=== PATIENT | male | born 1975 | race Caucasian/White ===

== ENCOUNTER 2016-07-04 23:07 | Inpatient (IN) | payer OTHER ==
--- NOTE | ~2016-07-04 | DS ---
Unit #: [id number] #: [id number] Patient: JOJO LIN [id number] [facility] [place] [address] [id number] MR#: [id number] NAME: JOJO LIN. ROOM: P183 Age: 41 Sex: M Admission Date: 07/04/2016 : 1975 Discharge Date: 07/09/2016 Attending Physician: Tk Cox M.D. Primary Care Physician: Doretha Smith DISCHARGE SUMMARY IDENTIFYING DATA Mr. Lin is a 41-year-old white male, who is a resident of [place], [place] and was self-referred to the hospital. DISCHARGE DIAGNOSES Psychiatric: Major depressive disorder, recurrent, moderate, without psychotic features; opioid dependence, moderate. Medical: Hypertension and asthma. Stressors: Moderate psychosocial stressors. HISTORY OF PRESENT ILLNESS Please see initial psychiatric evaluation for details. PAST PSYCHIATRIC HISTORY Please see initial psychiatric evaluation for details. PAST MEDICAL HISTORY Please see initial psychiatric evaluation for details. HOSPITAL COURSE The patient was admitted to the adult psychiatric and chemical dependency unit at [facility]gio [facility] and was oriented to the hospital environment. Routine p.r.n. medications were initiated, and he was started on the detox protocol and was also started on Remeron as an antidepressant and was closely monitored. He was taking the medications regularly and was tolerating them fairly well and was able to show a decent and therapeutic response and was willing to continue treatment on an outpatient basis and as such, it was decided that he will be discharged home and will continue treatment on an outpatient basis. DISCHARGE MEDICATIONS Remeron 15 mg at bedtime for depression. DISCHARGE CONDITION Stable. PROGNOSIS Fair. Dictated by... Tk Cox M.D. IAA/modl Unit #: [id number] #: [id number] Patient: JOJO LIN TD: 07/09/2016 23:54 JOB #: [id number] DISCHARGE SUMMARY X Tk Cox MD DISCHARGE SUMMARY
--- NOTE | ~2016-07-04 | PN ---
Unit #: [id number] #: [id number] Patient: JOJO LIN [id number] [facility] [address] [place] [address] [id number] MR#: [id number] NAME: JOJO LIN ROOM: P183 Age: 41 Sex: M Admission Date: 07/04/2016 : 1975 Attending Physician: Tk Cox M.D. Admitting Physician: Tk Cox M.D. Primary Care Physician: Doretha MENDES PROGRESS NOTES DATE OF SERVICE: 07/06/2016 SUBJECTIVE Mr. Lin is a 41-year-old white male who was seen today and chart was reviewed and case was discussed with the staff. He has been complaining of significant anxiety. Meanwhile, he has been compliant with the treatment recommendations and has been taking medications and tolerating them fairly well with no reported side effects. MENTAL STATUS EXAMINATION Middle-aged white male who was casually dressed with fair personal hygiene, appears to be in no acute distress or discomfort. He was awake and alert with intact orientation. His mood was anxious with a congruent affect. He denies any suicidal or homicidal ideations. His insight and judgment remain slightly impaired. TREATMENT PLAN 1. We will continue him on his current medications and treatment protocol. We will monitor his response to the medications and make further adjustments as needed. 2. We will continue to follow up. Dictated by... Jacque Gudino/mikayla TD: 07/08/2016 02:09 JOB #: [id number] [facility] PROGRESS NOTES X Tk Cox MD PROGRESS NOTE
--- NOTE | ~2016-07-04 | PA ---
Unit #: [id number] #: [id number] Patient: [facility]JO LIN [id number] [facility] [place] [address] [id number] I MR#: [id number] NAME: JOJO LIN. ROOM: P183 Age: 41 Sex: M Admission Date: 07/04/2016 : 1975 Date of Assessment: 07/05/2016 Attending Physician: Tk Cox M.D. Admitting Physician: Tk Cox M.D. Primary Care Physician: Doretha Smith PSYCHIATRIC ASSESSMENT DATE OF SERVICE 07/05/2016. IDENTIFYING DATA Mr. Lni is a 41-year-old single white male, who is a resident of [place], [place] and is known to us from previous encounter and was self-referred to the hospital on a voluntary basis. CHIEF COMPLAINT "I have been using heroin on a daily basis." HISTORY OF PRESENT ILLNESS Mr. Lin is a 41-year-old white male with history of mood disorder and substance abuse, who was self-referred to the hospital. Upon presentation, he reports that he has been using 0.5 to 1 g of heroin on a daily basis and that he feels suicidal and had a plan to overdose on heroin and does report increasing depression, anxiety, irritability, restlessness, feelings of hopelessness and helplessness, psychomotor retardation, anhedonia, and suicidal ideations with intent and plan. SUBSTANCE ABUSE HISTORY The patient reports a history of alcohol and opioid abuse, and currently, opioids has been his drug of choice as he reports that he has been snorting 0.5 to 1 g on a daily basis. PAST PSYCHIATRIC HISTORY The patient has had a history of inpatient chemical dependency treatment at [facility], and [facility], and review of the medical records indicate that currently he is not active in any treatment program, is not seeing a psychiatrist, and is not taking any psychotropic medications. PAST MEDICAL HISTORY The patient's medical history is significant for asthma and hypertension. ALLERGIES Morphine. PERSONAL AND SOCIAL HISTORY A 41-year-old white male, who reports that he is single, unemployed, and lives by himself and has poor social support system. MENTAL STATUS EXAMINATION Unit #: [id number] #: [id number] Patient: JOJO LIN A Middle-aged white male, who was casually dressed with fair personal hygiene, appears to be in no acute distress or discomfort. He was awake and alert on interaction with intact orientation to time, place, and person. His mood was anxious and depressed with a congruent affect. His speech was slow and goal directed. He denies any suicidal or homicidal ideations and also denies any auditory or visual hallucinations. His insight and judgment remain significantly impaired. DIAGNOSTIC IMPRESSION Psychiatric: Major depressive disorder, recurrent, moderate, without psychotic features and opioid dependence, moderate, in acute withdrawals. Medical: Hypertension and asthma. Stressors: Moderate psychosocial stressors. TREATMENT PLAN 1. The patient has presented with a history of mood disorder and substance abuse and has been decompensating and will need inpatient hospitalization for safety and stabilization. We will start him back on his home medications and we will adjust the medications and monitor response. 2. Supportive therapy was provided to the patient. 3. Safe, structured, and nourishing environment will be provided. ESTIMATED LENGTH OF STAY 5 to 7 days. ABILITY TO HELP SELF Limited. WILLINGNESS TO HELP SELF The patient appears to be willing to help self. STRENGTHS 1. Communicative. 2. Cooperative. PROBLEMS 1. Chronic dysphoric symptoms. 2. Chronic chemical dependency. 3. Poor social support system. DISCHARGE CRITERIA This will be contingent upon the patient's ability to go through detox without having any significant withdrawal symptoms as well as his ability to stay safe to himself, particularly after discharge from the hospital. Dictated by... Jacque Gudino/mikayla TD: 07/05/2016 16:29 JOB #: [id number] Unit #: [id number] #: [id number] Patient: JOJO LIN PSYCHIATRIC ASSESSMENT X Tk Cox MD PSYCHIATRIC ASSESSMENT
--- NOTE | ~2016-07-04 | HP ---
Unit #: [id number] #: [id number] Patient: JOJO COLEMAN [id number] [place] [address] [id number] MR#: [id number] NAME: JOJO COLEMAN. ROOM: 83 Age: 41 Sex: M Admission Date: 07/04/2016 : 1975 Attending Physician: Tk Cox M.D. Admitting Physician: Tk Cox M.D. Primary Care Physician: Doretha Smith HISTORY AND PHYSICAL HISTORY OF PRESENT ILLNESS The patient is a 41-year-old male admitted to [address] [place] [address] on 07/04/2016 for suicidal ideations and to detox from heroin. PAST MEDICAL HISTORY 1. Hypertension 2. Asthma 3. Nicotine dependence 4. Heroin addiction PAST SURGICAL HISTORY 1. Appendectomy 2. Adenoids SOCIAL HISTORY The patient is unemployed. He lives with a friend. He smokes one to two packs of cigarettes daily and uses one-half to one gram of heroin per day. FAMILY MEDICAL HISTORY Noncontributory. ALLERGIES Morphine. CURRENT MEDICATIONS The patient is not on any home medications. REVIEW OF SYSTEMS CONSTITUTIONAL: No fever or chills. HEENT: Denies any sore throat, ear pain or runny nose. CARDIOVASCULAR: Denies chest pain, irregular heart rhythm or palpitations. CHEST: Denies shortness of breath or cough. No hemoptysis. GASTROINTESTINAL: Denies nausea, vomiting, diarrhea or chronic constipation. ENDOCRINE: Denies history of increased thirst or urination. No recent significant weight loss or gain. GENITOURINARY: Denies dysuria, frequency, or hematuria. SKIN: Denies any rashes. HEMATOLOGIC: Denies history of increased bleeding or bruising. MUSCULOSKELETAL: Denies any hot, swollen joints. No generalized muscle pain. NEUROLOGIC: Denies problems with vision or speech. No frequent, severe Unit #: [id number] #: [id number] Patient: JOJO COLEMAN headaches. No numbness, tingling or weakness in any extremities. Denies loss of bladder or bowel control. PHYSICAL EXAM GENERAL: He is awake, alert and oriented in no acute distress. VITAL SIGNS: Temperature 98.6, heart rate 101, respiration 18, blood pressure 145/98. HEIGHT: 6'1". WEIGHT: 194 pounds. SKIN: Warm and dry without rash or lesion. HEENT: Normocephalic. TMs not viewed. Oral and nasal passages clear. Conjunctivae clear. PERRLA. EOMs intact. NECK: Supple without lymphadenopathy or thyromegaly. HEART: Regular rate and rhythm without murmur. LUNGS: Clear. ABDOMEN: Soft, nontender. : Not done. EXTREMITIES: No evidence of cyanosis, clubbing or edema. Moves all without focal deficit. NEUROLOGICAL: Grossly within normal limits. Cranial Nerves: II: Visual benitez are intact. III, IV AND : Extraocular movements are intact. Pupils are equal, round and reactive to light. V: Facial sensation is grossly normal. VII: Facial movements and expression are normal. VIII: Auditory acuity grossly intact. IX, X: Uvula is midline. Phonation is normal. XI: Patient shrugs shoulders and turns head normally. XII: Tongue protrudes in the midline. Sensory and Motor Function: Sensory and motor sensation is grossly normal. Motor: moves all extremities well. IMPRESSION 1. Psychiatric admission. 2. Heroin addiction. 3. Nicotine dependence. 4. Hypertension. 5. Asthma. RECOMMENDATIONS Psychiatric per psychiatrist. MEDICAL: No contraindication to participate in facility activities. MEDICAL PROGNOSIS Good. MEDICAL CONDITION Stable. Dictated by... Beverley Oakley/wilmer TD: 07/06/2016 22:44 Unit #: [id number] #: [id number] Patient: JOJO COLEMAN JOB #: [id number] HISTORY AND PHYSICAL X JESSENIA HULL APRN X HISTORY AND PHYSICAL
--- NOTE | ~2016-07-04 | PN ---
Unit #: [id number] #: [id number] Patient: JOJO LIN [id number] [facility] [address] [place] [address] [id number] I MR#: [id number] NAME: JOJO LIN. ROOM: P183 Age: 41 Sex: M Admission Date: 07/04/2016 : 1975 Attending Physician: Tk Cox M.D. Admitting Physician: Tk Cox M.D. Primary Care Physician: Doretha MENDES PROGRESS NOTES DATE OF SERVICE: 07/08/2016 SUBJECTIVE Mr. Lin is a 41-year-old white male who was seen today and chart was reviewed, and case was discussed with the staff. He has been anxious, withdrawn, and rather seclusive to himself. Meanwhile, he has been cooperative with treatment recommendation. He has been taking the medications and tolerating them fairly well with no reported side effects. MENTAL STATUS EXAMINATION Middle-aged white male who was casually dressed with fair personal hygiene, appears to be in no acute distress or discomfort. He was awake and alert on interaction with intact orientation. His mood was anxious with a congruent affect. He denies any suicidal or homicidal ideations. His insight and judgment remain slightly impaired. TREATMENT PLAN 1. We will continue him on his current medications and treatment protocol. We will monitor his response to the medications and make further adjustments as needed. 2. We will continue to follow up. Dictated by... Jacque Gudino/mikayla TD: 07/09/2016 06:02 JOB #: [id number] [facility] PROGRESS NOTES X Tk Cox MD PROGRESS NOTE
--- NOTE | ~2016-07-04 | PN ---
Unit #: [id number] #: [id number] Patient: JOJO LIN [id number] [facility] [address] [place] [address] [id number] I MR#: [id number] NAME: JOJO LIN. ROOM: P183 Age: 41 Sex: M Admission Date: 07/04/2016 : 1975 Attending Physician: Tk Cox M.D. Admitting Physician: Tk Cox M.D. Primary Care Physician: Doretha MENDES PROGRESS NOTES DATE OF SERVICE: 07/07/2016 SUBJECTIVE Mr. Lin is a 41-year-old white male who was seen today and chart was reviewed, and case was discussed with the staff. He has been anxious, withdrawn, and rather seclusive to himself. Meanwhile, he has been cooperative with treatment recommendation. He has been taking medications and tolerating them fairly well with no reported side effects. MENTAL STATUS EXAMINATION Middle-aged white male who was casually dressed with fair personal hygiene, appears to be in no acute distress or discomfort. He was awake and alert on interaction with intact orientation. His mood was anxious with a congruent affect. His speech was slow and goal directed. He denies any suicidal or homicidal ideations. His insight and judgment remain slightly impaired. TREATMENT PLAN 1. We will continue him on his current medications and treatment protocol. We will monitor his response and make further adjustments as needed. 2. We will continue to follow up. Dictated by... Jacque Gudino/mikayla TD: 07/08/2016 00:49 JOB #: [id number] [facility] PROGRESS NOTES X Tk Cox MD PROGRESS NOTE
[~2016-07-04 23:07] MED LIST: ACETAMINOPHEN325 MG PO; ALEVE; AMOXICILLIN; AZITHROMYCIN500 MG PO; BACTRIM DS TABL1 TA1 PO; BENTYL20 MG PO; COLACE PO; DICYCLOMINE HCL20 MG PO; DSS100 MG PO; DURAGESIC TOP; FLEXERIL PO; FLEXERIL10 MG PO; FOLIC ACID1 MG PO; HUMALOG100 U/ML SUBQ; IBUPROFEN PO; KETOPROFEN PO; LISINOPRIL PO; LORTAB 5/500 TA1 TA1 PO; LORTAB 7.5-5001 TAB PO; MEDROL PO; NABUMETONE PO; NAPROXEN PO; NEXIUM PO; NEXIUM20 MG PO; NO MEDICATIONS; NORCO 5/325 TAB1 TAB PO; PEN-VEE K PO; PHENERGAN PO; PHENERGAN25 MG PO; PREDNISONE10 MG PO; PREDNISONE10 MG/DOSE PO; SKELAXIN PO; THERAPEUTIC VI1 EACH PO; TYLENOL #3 PO; TYLENOL EXTRA STR PO; ULTRAM PO; VICODIN 5/1 TAB 5/50 PO; VICODIN 5/500 T1 TAB; VICODIN 5/500 T1 TAB PO; VICODIN PO; VOLTAREN50 MG PO; VOLTAREN75 MG PO
[2016-07-05 12:45] LABS: BASOPHIL# 0.1 X10e3 (0-0.3); BASOPHIL% 0.9 % (0-2.5); EOSINOPHIL# 0.3 X10e3 (0-0.7); EOSINOPHIL% 3.3 % (0.0-7.0); LYMPHOCYTE# 4.2 X10e3 (1.0-3.5); LYMPHOCYTE% 47.1 % (17.0-45.0); MEAN CORPUSCULAR HEMOGLOBIN 29.5 PG (28-34); MEAN CORPUSCULAR HGB CONC 32.4 g/dL (30-36); MEAN PLATELET VOLUME 8.4 FL (6.5-11.5); MONOCYTE% 10.8 % (3.0-12.0); NEUTROPHIL# 3.4 X10e3 (1.5-7.1); NEUTROPHIL% 37.9 % (40-75); PLATELET COUNT 174 X10e3 (140-420); RED BLOOD COUNT 4.73 X10e (3.90-5.60); WHITE BLOOD COUNT 8.9 X10e3 (4.0-10.5)
[2016-07-05 12:56] LABS: DIFF IND NO
[2016-07-05 13:07] LABS: ALKALINE PHOSPHATASE 51 U/L (32-92); ALT (SGPT) 9 U/L (10-40); AST (SGOT) 13 U/L (10-42); BILIRUBIN,TOTAL 0.3 mg/dL (0.2-2.0); BLOOD UREA NITROGEN 17 mg/dL (9-23); BUN/CREATININE RATIO 21.25; CALCIUM SERUM 8.5 mg/dL (8.4-10.2); CARBON DIOXIDE 29 mmol/L (22-31); CHLORIDE 107 mmol/L (100-111); CREATININE SERUM 0.8 mg/dL (0.6-1.4); GLOM FILT RATE Estimated ABOVE60 mL/min (>60); GLUCOSE FASTING 113 mg/dL (70-110); POTASSIUM 3.6 mmol/L (3.5-5.1); PROTEIN TOTAL SERUM 4.9 g/dL (6.0-8.3); SODIUM 142 mmol/L (135-145)
[2016-07-05 13:16] LABS: THYROID STIMULATING HORMONE 0.52 uIU/ml (0.34-5.60)
[2016-07-05 13:23] LABS: FREE THYROXIN (T4) 1.15 ng/dL (0.58-1.64)
[2016-07-07 09:36] LABS: URINE APPEARANCE CLEAR; URINE BILIRUBIN NEG (NEG); URINE BLOOD NEG (NEG); URINE COLOR YELLOW; URINE GLUCOSE NEG (NEG); URINE KETONE NEG (NEG); URINE LEUKOCYTE ESTERASE NEG (NEG); URINE NITRATE NEG (NEG); URINE PH 6.5 (5-8); URINE PROTEIN NEG (NEG); URINE SPECIFIC GRAVITY 1.011 (1.003-1.035); URINE UROBILINOGEN 0.2 MG/DL (NEG)
[2016-07-07 10:01] LABS: AMPHETAMINE NEG (NEG); BARBITURATES NEG (NEG); BENZODIAZEPINES NEG (NEG); COCAINE NEG (NEG); MARIJUANA NEG (NEG); OPIATES NEG (NEG); TRICYCLIC ANTIDEPRESSANTS NEG (NEG); U METHADONE NEG (NEG)
== END 2016-07-09 09:10 | disposition home or self-care (01) | DRG 885 ==
LOC: P2S 23:07 → P1E 07-05 17:50
PROVIDERS: Psychiatry & Neurology Psychiatry
PROC: HZ2ZZZZ Detoxification Services for Substance Abuse Treatment (ICD-10-PCS; principal; 2016-07-04)
DX: F33.1 Major depressive disorder, recurrent, moderate (principal); I10 Essential (primary) hypertension; F11.23 Opioid dependence with withdrawal; J45.909 Unspecified asthma, uncomplicated; F17.210 Nicotine dependence, cigarettes, uncomplicated; Z56.0 Unemployment, unspecified
CPT/HCPCS: 80053; 80307; 81003; 84439; 84443; 85025; 86592

== ENCOUNTER 2016-11-14 16:46 | Inpatient (IN) | payer OTHER ==
[~2016-11-14] VITALS: Ht 193 cm; Wt 85.7 kg
--- NOTE | ~2016-11-14 | PA ---
Unit #: [id number] #: [id number] Patient: JOJO COLEMAN [id number] [facility] [address] [place] [address] [id number] I MR#: [id number] NAME: JOJO COLEMAN. ROOM: P184 Age: 41 Sex: M Admission Date: 11/14/2016 : 1975 Date of Assessment: Attending Physician: Tk Cox M.D. Admitting Physician: Tk Cox M.D. Primary Care Physician: Doretha Smith PSYCHIATRIC ASSESSMENT DATE OF SERVICE 11/15/2016. IDENTIFYING DATA Mr. Coleman is a 41-year-old single white male, who is a resident of [place], [place], and is known to us from previous encounter, was self-referred to the hospital on a voluntary basis. CHIEF COMPLAINT "I've been abusing heroin." HISTORY OF PRESENT ILLNESS Mr. Coleman is a 41-year-old white male with history of substance abuse and mood disorder, who is known to me from previous encounter and has a long history of mood disorder and substance abuse and dependence and brought himself back to the hospital stating that he has been in a lot of stress and CPS got involved. He was staying with this girl and the kids and CPS did not like it and he got into trouble and he started decompensating with increasing depression, anxiety, irritability and started abusing heroin and reports that now he has been using 1 to 2 g of heroin via snorting and has a growing concern that he is going to end up killing himself. He reports that he will end up killing himself intentionally if he does not get any help and reports suicidal ideation with a plan to overdose on heroin and does endorse significant stress, anxiety, irritability, restlessness, feelings of hopelessness and helplessness, and suicidal ideation and as such, a recommendation for inpatient level of care for safety and stabilization was made and the patient was transferred to us. SUBSTANCE ABUSE HISTORY The patient reports history of experimentation of alcohol, but heroin has been his drug of choice and reports that he has been using 1 to 2 g of heroin a day. PAST PSYCHIATRIC HISTORY The patient has had a history of inpatient chemical dependency treatment at [facility] and [facility], and review of the medical records indicate currently he is not active in any treatment program, is not seeing a psychiatrist, and is not taking any psychotropic medications. PAST MEDICAL HISTORY Hypertension and asthma. ALLERGIES Unit #: [id number] #: [id number] Patient: JOJO COLEMAN Morphine. PERSONAL AND SOCIAL HISTORY A 41-year-old white male, who reports that he is single, unemployed, and he lives in a boarding house and has poor social support system. MENTAL STATUS EXAMINATION Young white male, who was casually dressed with fair personal hygiene, appears to be in no acute distress or discomfort. He was awake and alert on interaction with intact orientation to time, place, and person. His mood was anxious and depressed with a congruent affect. His speech was slow and restricted in content. His thought processes were disorganized with some looseness of associations and flight of ideas and suicidal ideations. His insight and judgment remain significantly impaired. DIAGNOSTIC IMPRESSION Psychiatric: Major depressive disorder, recurrent, moderate, without psychotic features and opioid dependence, moderate, in acute withdrawals. Medical: Hypertension and asthma. Stressors: Moderate psychosocial stressors. TREATMENT PLAN 1. The patient has presented with a history of substance abuse and mood disorder and has been decompensating and will need inpatient hospitalization for detoxification, safety, and stabilization. We will recommend starting him on antidepressant therapy. We will monitor his response and make further adjustments as needed. 2. Supportive therapy was provided to the patient. 3. Safe, structured, and nourishing environment will be provided. ESTIMATED LENGTH OF STAY 5 to 7 days. ABILITY TO HELP SELF Limited. WILLINGNESS TO HELP SELF The patient appears to be willing to help self. STRENGTHS 1. Communicative. 2. Cooperative. PROBLEMS 1. Chronic dysphoric symptoms. 2. Chronic chemical dependency. 3. Poor social support system. DISCHARGE CRITERIA This will be contingent upon the patient's ability to show resolution of his depression and anxiety and his ability to stay safe and sober, particularly after discharge from the hospital. Dictated by... Tk Cox M.D. Unit #: [id number] #: [id number] Patient: JOJO COLEMAN IAA/modl TD: 11/15/2016 23:40 JOB #: [id number] PSYCHIATRIC ASSESSMENT Page 1 of 1 X Tk Cox MD PSYCHIATRIC ASSESSMENT
--- NOTE | ~2016-11-14 | PN ---
Unit #: [id number] #: [id number] Patient: JOJO LIN [id number] [facility] [address] [place] [address] [id number] I MR#: [id number] NAME: JOJO LIN. ROOM: P184 Age: 41 Sex: M Admission Date: 11/14/2016 : 1975 Attending Physician: Tk Cox M.D. Admitting Physician: Tk Cox M.D. Primary Care Physician: Doretha MENDES PROGRESS NOTES DATE November 16, 2016 DISCUSSION Mr. Lin is a 41-year-old white male, who was seen today and chart was reviewed and the case was discussed with the staff. He has been anxious, withdrawn, and rather seclusive to himself. Meanwhile, he has been taking the medications and tolerating them fairly well with no reported side effects. MENTAL STATUS EXAMINATION Middle-aged white male, who was casually dressed with fair personal hygiene and appears to be in no acute distress or discomfort. He was awake and alert on interaction with intact orientation. His mood is anxious with a congruent affect. He denies any suicidal or homicidal ideations. His insight and judgment remain slightly impaired. TREATMENT PLAN 1. We will continue him on his current medications and treatment protocol, and will monitor his response to the medications, and make further adjustments as needed. 2. We will continue to followup. Dictated by... Jacque Gudino/simone TD: 11/17/2016 09:51 JOB #: [id number] Unit #: [id number] #: [id number] Patient: JOJO LIN [facility] PROGRESS NOTES Page 1 of 1 X Tk Cox MD PROGRESS NOTE
--- NOTE | ~2016-11-14 | DS ---
Unit #: [id number] #: [id number] Patient: JOJO LIN [id number] [facility] [address] [id number] MR#: [id number] NAME: JOJO LIN. ROOM: P184 Age: 41 Sex: M Admission Date: 11/14/2016 : 1975 Discharge Date: 11/17/2016 Attending Physician: Tk Cox M.D. Primary Care Physician: Doretha Smith DISCHARGE SUMMARY IDENTIFYING DATA Mr. Lin is a 41-year-old white male with history of substance abuse and mood disorder, who was self referred to the hospital. DISCHARGE DIAGNOSES Psychiatric: Opioid dependence, moderate and acute withdrawals; opioid-induced mood disorder. Medical: None. Stressors: Moderate psychosocial stressors. HISTORY OF PRESENT ILLNESS Please see initial psychiatric evaluation for details. PAST PSYCHIATRIC HISTORY Please see initial psychiatric evaluation for details. PAST MEDICAL HISTORY Please see initial psychiatric evaluation for details. HOSPITAL COURSE The patient was admitted to the adult psychiatric unit at [facility] and was oriented to the hospital environment. Routine p.r.n. medications were initiated, and he was started on opioid detox protocol; however, the patient was seen to be showing very poor insight into his situation and soon after it was decided that he wanted to leave against medical advice and we encouraged him to complete the treatment program. He refused to accept recommendation of the treatment team, and was denying any suicidal ideation, intent, or plan and as such, was not meeting criteria for involuntary psychiatric hospitalization and as such, it was decided that he will be discharged home and will continue treatment on an outpatient basis. DISCHARGE MEDICATIONS None. DISCHARGE CONDITION Stable. PROGNOSIS Guarded. Unit #: [id number] #: [id number] Patient: JOJO LIN Dictated by... Jacque Gudino/modl TD: 12/17/2016 07:20 JOB #: [id number] DISCHARGE SUMMARY Page 1 of 1 X Tk Cox MD X DISCHARGE SUMMARY
--- NOTE | ~2016-11-14 | HP ---
Unit #: [id number] #: [id number] Patient: JOJO COLEMAN [id number] [place] [address] [id number] MR#: [id number] NAME: JOJO COLEMAN. ROOM: 84 Age: 41 Sex: M Admission Date: 11/14/2016 : 1975 Attending Physician: Tk Cox M.D. Admitting Physician: Tk Cox M.D. Primary Care Physician: Doretha Smith HISTORY AND PHYSICAL HISTORY OF PRESENT ILLNESS The patient is a 41-year-old male admitted to [facility] on 11/14/2016 to withdrawal from heroin. PAST MEDICAL HISTORY 1. Hypertension. 2. Asthma. 3. Nicotine dependence. 4. Heroin addiction. PAST SURGICAL HISTORY 1. Appendectomy. 2. Adenoids. SOCIAL HISTORY He is employed. He is homeless. He smokes 1 to 2 packs of cigarettes daily and uses 1 to 2 grams of heroin per day. FAMILY MEDICAL HISTORY Noncontributory. ALLERGIES Morphine. CURRENT MEDICATIONS The patient is not on any home medications. REVIEW OF SYSTEMS CONSTITUTIONAL: No fever or chills. HEENT: Denies any sore throat, ear pain or runny nose. CARDIOVASCULAR: Denies chest pain, irregular heart rhythm or palpitations. CHEST: Denies shortness of breath or cough. No hemoptysis. GASTROINTESTINAL: Denies nausea, vomiting, diarrhea or chronic constipation. ENDOCRINE: Denies history of increased thirst or urination. No recent significant weight loss or gain. GENITOURINARY: Denies dysuria, frequency, or hematuria. SKIN: Denies any rashes. HEMATOLOGIC: Denies history of increased bleeding or bruising. MUSCULOSKELETAL: Denies any hot, swollen joints. No generalized muscle pain. NEUROLOGIC: Denies problems with vision or speech. No frequent, severe headaches. No numbness, tingling or weakness in any extremities. Denies Unit #: [id number] #: [id number] Patient: JOJO COLEMAN loss of bladder or bowel control. PHYSICAL EXAMINATION GENERAL: He is awake, alert, and oriented in no acute distress. VITAL SIGNS: Temperature 98.0, heart rate 92, respirations 16, blood pressure 125/86. HEIGHT: 6 feet 4. WEIGHT: 189 pounds. SKIN: Warm and dry without rash or lesion. HEENT: Normocephalic. TMs not viewed. Oral and nasal passages clear. Conjunctivae clear. PERRLA. EOMs intact. NECK: Supple without lymphadenopathy or thyromegaly. HEART: Regular rate and rhythm without murmur. LUNGS: Clear. ABDOMEN: Soft, nontender. : Not done. EXTREMITIES: No evidence of cyanosis, clubbing or edema. Moves all without focal deficit. NEUROLOGICAL: Grossly within normal limits. Cranial Nerves: II: Visual benitez are intact. III, IV AND : Extraocular movements are intact. Pupils are equal, round and reactive to light. V: Facial sensation is grossly normal. VII: Facial movements and expression are normal. VIII: Auditory acuity grossly intact. IX, X: Uvula is midline. Phonation is normal. XI: Patient shrugs shoulders and turns head normally. XII: Tongue protrudes in the midline. Sensory and Motor Function: Sensory and motor sensation is grossly normal. Motor: moves all extremities well. IMPRESSION 1. Psychiatric admission. 2. Hypertension. 3. Asthma. 4. Nicotine dependence. 5. Heroin abuse. RECOMMENDATIONS PSYCHIATRIC: Per psychiatrist. MEDICAL: No contraindication to participate in this facility activities. MEDICAL PROGNOSIS Good. MEDICAL CONDITION Stable. Dictated by... Beverley Oakley/karolyn TD: 11/15/2016 15:16 JOB #: [id number] Unit #: [id number] #: [id number] Patient: JOJO COLEMAN HISTORY AND PHYSICAL Page 1 of 1 X JESSENIA HULL APRN HISTORY AND PHYSICAL
[2016-11-15 10:47] LABS: ALBUMIN SERUM 3.4 g/dL (3.5-5.0); BILIRUBIN,TOTAL 0.9 mg/dL (0.2-2.0); BUN/CREATININE RATIO 28.88; CALCIUM SERUM 8.6 mg/dL (8.4-10.2); CREATININE SERUM 0.9 mg/dL (0.6-1.4); GLOM FILT RATE Estimated 105.7 mL/min (>60); POTASSIUM 3.8 mmol/L (3.5-5.1); PROTEIN TOTAL SERUM 5.5 g/dL (6.0-8.3)
[2016-11-15 11:23] LABS: BASOPHIL# 0.1 X10e3 (0-0.3); BASOPHIL% 1.3 % (0-2.5); EOSINOPHIL# 0.3 X10e3 (0-0.7); EOSINOPHIL% 4.5 % (0.0-7.0); HEMOGLOBIN 13.1 gm/dL (13.0-16.0); LYMPHOCYTE# 4.2 X10e3 (1.0-3.5); LYMPHOCYTE% 56.9 % (17.0-45.0); MEAN CELL VOLUME 89.7 FL (83-96); MEAN CORPUSCULAR HEMOGLOBIN 29.4 PG (28-34); MEAN CORPUSCULAR HGB CONC 32.8 g/dL (30-36); MEAN PLATELET VOLUME 8.9 FL (6.5-11.5); MONOCYTE# 0.8 X10e3 (0-1.0); MONOCYTE% 10.3 % (3.0-12.0); PLATELET COUNT 163 X10e3 (140-420); RED BLOOD COUNT 4.45 X10e (3.90-5.60); RED CELL DISTRIBUTION WIDTH 14.2 % (11.0-15.5); WHITE BLOOD COUNT 7.4 X10e3 (4.0-10.5)
[2016-11-15 12:03] LABS: DIFF IND YES
[2016-11-15 12:05] LABS: ANISOCYTOSIS SL; PLATELET ESTIMATE NORMAL (NORMAL)
== END 2016-11-17 11:15 | DRG 885 ==
LOC: P1E 17:44
PROVIDERS: Psychiatry & Neurology Psychiatry
PROC: HZ2ZZZZ Detoxification Services for Substance Abuse Treatment (ICD-10-PCS; principal; 2016-11-14)
DX: F33.1 Major depressive disorder, recurrent, moderate (principal); I10 Essential (primary) hypertension; F11.23 Opioid dependence with withdrawal; J45.909 Unspecified asthma, uncomplicated; F17.210 Nicotine dependence, cigarettes, uncomplicated; Z59.0 Homelessness
CPT/HCPCS: 80053; 85025; 86592